=== PATIENT | male | born 1950 | race Caucasian/White ===

== ENCOUNTER 2017-02-03 07:26 | Observation (INO) | payer MEDICARE, BC ==
--- NOTE | ~2017-02-03 | CT71 ---
[facility] A Service of [facility] RADIOLOGY TEXT RESULTS PATIENT: ESTRELLA IMLLER LOCATION: [address] : [birth year] UNIT #: [id number] AGE: [address]: Lashaun Lynne MD SEX: M ORDER DR: [id number] [facility] [address] [facility] [address]. [place], [place] [address] [id number] E MR#: [id number] Acc #: [id number] NAME: ESTRELLA MILLER : 1950 SEX: M STUDY DATE/TIME: 02/03/2017 8:49 UNIT: JULEE ROOM: STUDY DESCRIPTION: CT Head Wo Contrast Attending Physician: Angeline Gonzalez A.P.R.N. Ordering Physician: Angeline Gonzalez A.P.R.N. Primary Care Physician: Clementina Anderson M.D. MEDICAL IMAGING REPORT This report is preliminary unless electronic signature is present EXAM Head CT without contrast, 02/03/2017 HISTORY Altered mental status beginning yesterday post syncopal episode. Dizziness, weakness, sweaty, hypertension today. TECHNIQUE This CT exam was performed with one or more of the following radiation dose reduction techniques: automatic exposure control, adjustment of mA and/or kV according to patient size, and iterative reconstruction. FINDINGS Multiple axial images were obtained from the skull base to vertex without intravenous contrast administration. There is mild generalized atrophy and there is minimal periventricular microvascular white matter ischemic change. There is no midline shift. There is no mass or mass effect, hemorrhage or acute infarct. The visualized paranasal sinuses are clear. IMPRESSION Mild atrophy and periventricular microvascular white matter ischemic change. No acute intracranial abnormality. Dictated by... Chris Martínez M.D. THIS IS AN ELECTRONICALLY VERIFIED REPORT Chris Martínez M.D. at 02/04/2017 6:25 AM Alessandro TD: 02/03/2017 13:30 JOB #: [id number] [facility] A Service of [facility] RADIOLOGY TEXT RESULTS PATIENT: ESTRELLA MILLER [address] : [birth year] UNIT #: [id number] AGE: [address]: Lashaun Lynne MD SEX: M ORDER DR: MEDICAL IMAGING REPORT Page 1 of 1 COPY
--- NOTE | ~2017-02-03 | EE ---
Unit #: [id number] #: [id number] Patient: ESTRELLA MILLER [id number] [address] [address] [id number] Tashia MR#: [id number] NAME: ESTRELLA MILLER. : 1950 SEX: M STUDY DATE/TIME: 02/05/2017 UNIT: [facility] ROOM: [facility] STUDY DESCRIPTION: Attending Physician: Shira Hyatt M.D. Referring Physician: Shira Hyatt M.D. Primary Care Physician: Clementina Anderson M.D. NEURODIAGNOSTICS REPORT EXAM EEG. REASON FOR THE STUDY Syncope versus seizure. EEG DESCRIPTION This is a portable, digitally recorded, multimontage adult EEG with leads placed according to the International 10/20 System. Hyperventilation and photic stimulation were attempted. With the patient fully aroused, there is 8.5 Hz posterior dominant alpha rhythm which is symmetric and attenuate with eyes opening. The patient did become drowsy and later on stage 2 sleep was seen, briefly though. Hyperventilation was attempted but I did not see any significant changes. Photic stimulation was attempted in an intermittent step-tolentino pattern up to the flash frequency of 30 Hz but I did not see any driving, asymmetry, or paroxysmal activity. No clinical events were seen. IMPRESSION This is an essentially normal adult awake and asleep EEG. EEG like this does not rule out epilepsy. Clinical correlation is recommended. Dictated by... Lukas Madsen/ever TD: 02/13/2017 19:22 JOB #: [id number] Unit #: [id number] #: [id number] Patient: ESTRELLA MILLER NEURODIAGNOSTICS REPORT Page 1 of 1 X Mert Hui MD NEURODIAGNOSTICS REPORT
--- NOTE | ~2017-02-03 | CO ---
Unit #: [id number] #: [id number] Patient: DILLAN MILLER [id number] [address] [place], [place] [address] [id number] I MR#: [id number] NAME: DILLAN MILLER ROOM: [facility] Age: 67 Sex: M Admission Date: 02/03/2017 : 1950 Attending Physician: Shira Hyatt M.D. Primary Care Physician: Clementina Anderson M.D. Consultation Date: 02/04/2017 CONSULTATION REPORT REASON FOR CONSULTATION A 67-year-old white male, admitted with syncope x2 with urinary incontinence. Monitoring disclosed episodes of asystole up to 12 seconds. CLINICAL SUMMARY Mr. Dillan Miller is a very nice 67-year-old gentleman, who is normally followed by his regular embossograph operator, Dr. Taurus Hyde. The patient has a history of well documented coronary artery disease. In 10/2011, he had a myocardial infarction and Dr. Hyde performed angioplasty with stent deployments to the right coronary artery and left circumflex. His ejection fraction at that time was about 40% to 45%. He has done very well since that time and on last echo on file with the [facility] was on 04/24/2016 that showed an improved LVEF of 50% to 55% with mild left ventricular hypertrophy and moderate aortic valve regurgitation with [id number]-[id number] mitral valve regurgitation and RVSP equal 38 mmHg. The patient has complained of periodic episodes, where he "feels funny" and describes vague filling of almost feeling dizzy. On Sunday morning, 2 days prior to admission, he was in his recliner watching "nicholson is right" at about 11:00 a.m. He states that he passed out for unknown period of time and awakened to find he had urinary incontinence. He felt sort of weak, but changed clothes and drove himself off and did well until about 2:00 a.m. Sunday morning when he awakened from sleep drenching wet and discovered he had another episode of urinary incontinence and knew something was wrong and he came to the [facility] Emergency Department. He was seen in the ER at approximately 07:26 a.m. Sunday, and at that time, he had unremarkable vital signs. He was not orthostatics with supine blood pressure 121/77 and heart rate of 76, and on standing 131/76 with a heart rate of 76 per minute. The patient's initial 12-lead EKG on 02/04/2017 at 07:29 a.m. showed normal sinus rhythm with evidence of inferior infarct, age undetermined, and no ischemic changes. QRS duration was 98 msec. There was no signs of bundle branch block or AV block. His initial lab work was also unremarkable. We have elected to admit him for monitoring. The patient was observed on monitor on 02/03/2017 at 08:41 p.m. to have 3.56 second pauses and then developed a junctional rhythm at approximately 40 to 45 per minute. He was then go back to a sinus rhythm at about 75 to 80 per minute. At 04:18 a.m., 02/04/2017, he had an 11.8 second pause followed by marked sinus bradycardia at approximately 30 beats per minute. The staff ran into his room and seeing asystole, they started to do chest compressions, but he suddenly woke up and wondered what was going on. I understand he Unit #: [id number] #: [id number] Patient: DILLAN MILLER had another episode of urinary incontinence. The patient was transferred to the intensive care unit and has been maintained on a dopamine drip at 5 mcg/kg/minute and has not had any further episodes of bradycardia with heart rate staying in the 70s per minute and sinus. The patient states that when he was having junctional rhythm that felt very similar to what he had experienced when he was actually driving his car on multiple occasions and pulled over to the side of the road thinking he may have been having a "hypoglycemic episode." He would eat some candy or some fruit and wait 15 minutes or so and then get back on the road driving. He has never had a syncopal episode while behind the wheel of the car. Such episodes have been going on for greater than a month. Of note, ever since his myocardial infarction he has been on low-dose carvedilol 3.125 mg p.o. b.i.d. There is no history of illicit drug use. He has no idea as to whether he has history of sleep apnea, but does note that others say that he sometimes snores loudly. The patient does recall having severe chest pain at the time of his acute myocardial infarction in 2011. He states that in recent years he has not had the slightest bit of chest, neck, arm, jaw, or interscapular discomfort suggestive of angina. He reportedly had a stress Cardiolite study last year that showed no ischemia and preserved LV function. The patient also denies being aware of any rapid palpitations, irregularities of his heart rhythm, or history of diagnosis of atrial fib. He did have a . ALLERGIES No known drug allergies. MEDICATIONS Prior to admission: Carvedilol 3.125 mg p.o. b.i.d., Crestor 40 mg p.o. once per day, lisinopril 2.5 mg every day and Zetia 10 mg p.o. every day. PAST SURGICAL HISTORY Other medical problems: 1. Status post cholecystectomy. 2. Status post hernia repair. 3. Status post stroke versus TIA several years ago. 4. Status post myocardial infarction in 10/2011 with stent deployments to right coronary artery and circumflex. PAST MEDICAL HISTORY Other medical problems: History of hypertension and hyperlipidemia. SOCIAL HISTORY The patient is a lifelong nonsmoker. He is normally very active. He had noted in the last several months increased fatigue with normal activities for unexplained reasons. REVIEW OF SYSTEMS The patient denies any recent TIA or stroke symptoms. He has not had any severe headaches, photophobia, or visual problems. He denies any PND, orthopnea, or lower extremity edema. He has not had any claudication of lower extremities or edema. He denies any vertigo type symptoms. He has not had any anginal equivalents. He denies abdominal pain, melena, hematochezia, or hematemesis. He has not had any muscle aches or Unit #: [id number] #: [id number] Patient: ANGELA,DILLAN L myalgias. There is no history of anemia. There is no history of documented thyroid disorder or diabetes mellitus. A 12-point review of system is otherwise negative. FAMILY HISTORY Negative for premature coronary artery disease. Positive for hypertension. PHYSICAL EXAMINATION GENERAL: The patient is currently alert, comfortable appearing and somewhat anxious 67-year-old white male, who appears much younger than his stated age. VITAL SIGNS: Blood pressure is 118/72, monitor shows normal sinus rhythm at 72 per minute, oxygen saturations are 97% on 2 L/minute nasal cannula, respiratory rate is 16 per minute and unlabored. HEENT: Shows good skin turgor. He is nonicteric. His pupils are equal, round, and reactive to light. Oral mucosa is moist. NECK: Supple without submandibular lymphadenopathy. Thyroid is not palpable. CHEST: Chest wall nontender to palpation. Lungs demonstrate very good air movement bilaterally without any wheezes, rales, or rhonchi. CARDIOVASCULAR: Reveals a normal S1. The pulmonic component of the second heart sound is not increased. There is no S3. There is a 2/6 systolic murmur at the left lower sternal border that radiates just beyond the apex, but does not reach the axilla. There is a 1 to 2/6 systolic murmur going toward the aortic region. There is a faint 1/6 diastolic murmur at the mid left lower sternal border. There are no Quincke's pulses. There are no bounding peripheral pulses. There is no wide pulse pressure present. There is no S3. ABDOMEN: Nondistended with normal bowel sounds. EXTREMITIES: Show no edema or cyanosis. NEURO: He is alert and oriented x3. There are no gross motor or sensory or lateralizing deficits. DIAGNOSTIC STUDIES LABORATORY RESULTS: Other pertinent laboratory from 02/04/2017, serum sodium 136, potassium 4.3, BUN 14, creatinine 0.7, and fasting blood sugar 122. Liver function tests are within normal limits. Serum magnesium 2.0. White blood cell count 8100, hemoglobin 15.6 with a platelet count 220,000. ASSESSMENT 1. Sick sinus syndrome with symptomatic bradycardia/asystole. The patient has been having vague symptoms of dizziness and in fact had been speculating he was having hypoglycemic episodes of causing him to pull his car to the side of the road until he can eat something and recover. Fortunately, he has never had any type of automobile accident. He is now manifested junctional bradyarrhythmias as well as almost 12 second pause. a. The patient has external pacemaker pads in place, but on a low-dose dopamine drip at 5 mcg/kg/min, he has not had any further bradyarrhythmias. 2. Stable atherosclerotic coronary heart disease:. a. Status post myocardial infarction in 10/2011. b. Status post angioplasty and stent deployments to the circumflex and right coronary artery in 10/[address] Taurus Hyde. 3. Apparently reversible cardiomyopathy. Ejection fraction reportedly about 40% in 2011, but on more recent echocardiogram on 04/24/2016 ejection fraction was 50% to 55%. 4. Valvular heart disease. Last echo, 04/28/2016 with moderate aortic valve regurgitation, mtja-aj-vhhjfxta mitral valve regurgitation, and mild tricuspid valve regurgitation with estimated RVSP 38 mmHg (mild pulmonary Unit #: [id number] #: [id number] Patient: DILLAN MILLER hypertension). 5. History of hypertensive cardiovascular disease with mild left ventricular hypertrophy seen on echocardiogram in 04/2016. 6. History of gastroesophageal reflux disease. 7. Hyperlipidemia. RECOMMENDATIONS We will continue current treatment with external pacemaker pads in place while continuing with dopamine drip at 5 mcg/kg/minute. He seems not to have had any further bradyarrhythmia whatsoever since he was placed on the low-dose dopamine drip. I have discussed the case with the piece meat trimmer, Dr. Connor Marinelli and we will plan on transfer the patient to the [facility]rophysiology Lab in the morning for permanent dual-chamber (likely MRI compatible) pacemaker placement. In the meantime, we will continue to monitor as he has show no signs of acute myocardial injury or acute coronary syndrome. His history of loud snoring does raise the question of some underlying sleep apnea, although the first episode of syncope occurred in the morning time while he was watching morning time game show on television and was wide awake and only awakened after passing out to find he was incontinent of urine. I therefore do not think this is bradyarrhythmias related to sleep apnea. He will still likely need a sleep study in the future to see if this may however be an issue. Once the pacemaker is in place, will be able to resume his beta-robson for his known coronary artery disease. The patient has of course been on hold since he demonstrated his marked bradyarrhythmias. Thank you for involving us in the care of this very nice gentleman and we will be happy to follow during his hospital stay with plan for him to follow up with his usual embossograph operator Dr. Taurus Hyde once he is eventually discharged. TD: 02/04/2017 23:41 JOB #: [id number] CC: Taurus Hyde M.D. Dictated by... Pj Platt M.D. CP/imer TD: 02/04/2017 23:00 JOB #: [id number] CC: Taurus Hyde M.D. Unit #: [id number] #: [id number] Patient: DILLAN MILLER CONSULTATION REPORT Page 1 of 1 X Pj Platt MD CONSULTATION REPORT
--- NOTE | ~2017-02-03 | EKG ---
PATIENT: ESTRELLA MILLER UNIT #: [id number] Ventricular Rate: 95 BPM Atrial Rate: 95 BPM P-R Interval: 152 ms QRS Duration: 94 ms Q-T Interval: 348 ms QTC Calculation(Bezet): 437 ms P Blanco: 40 degrees Calculated R Blanco: 84 degrees Calculated T Blanco: 54 degrees Diagnosis Line: Normal sinus rhythm Diagnosis Line: Lateral Q waves noted Diagnosis Line: Borderline ECG Diagnosis Line: When compared with ECG of 04-FEB-2017 07:29, Diagnosis Line: (unconfirmed) Diagnosis Line: Criteria for Inferior infarct are no longer Diagnosis Line: Present Diagnosis Line: ST no longer depressed in Lateral leads Diagnosis Line: Confirmed by DEEDEE BUI MD ([id number]) on Diagnosis Line: 02/04/2017 10:52:26 PM INTERPRETING MD: KENTRELL
--- NOTE | ~2017-02-03 | EKG ---
PATIENT: ESTRELLA MILLER UNIT #: [id number] Ventricular Rate: 77 BPM Atrial Rate: 77 BPM P-R Interval: 138 ms QRS Duration: 98 ms Q-T Interval: 368 ms QTC Calculation(Bezet): 416 ms P [place]: 19 degrees Calculated R [place]: -13 degrees Calculated T [place]: 15 degrees Diagnosis Line: Normal sinus rhythm Diagnosis Line: Inferior infarct (cited on or before 03-FEB-2017) Diagnosis Line: Abnormal ECG Diagnosis Line: When compared with ECG of 03-FEB-2017 08:13, Diagnosis Line: No significant change was found Diagnosis Line: Confirmed by DEEDEE BUI MD ([id number]) on Diagnosis Line: 02/04/2017 10:48:26 PM INTERPRETING : KENTRELL
--- NOTE | ~2017-02-03 | EKG ---
PATIENT: ESTRELLA MILLER UNIT #: [id number] Ventricular Rate: 69 BPM Atrial Rate: 69 BPM P-R Interval: 154 ms QRS Duration: 94 ms Q-T Interval: 396 ms QTC Calculation(Bezet): 424 ms P [place]: 63 degrees Calculated R [place]: -9 degrees Calculated T [place]: -8 degrees Diagnosis Line: Normal sinus rhythm Diagnosis Line: Cannot rule out Inferior infarct , age Diagnosis Line: undetermined Diagnosis Line: Borderline ECG Diagnosis Line: When compared with ECG of 04-FEB-2017 13:34, Diagnosis Line: Criteria for Lateral infarct are no longer Present Diagnosis Line: Possible Inferior infarct is now Present Diagnosis Line: ST no longer depressed in Inferior leads Diagnosis Line: T wave inversion now evident in Inferior leads Diagnosis Line: Confirmed by FADY JAMES MD ([id number]) on 02/06/2017 Diagnosis Line: 5:40:32 AM INTERPRETING MD: JACOB AIKEN
--- NOTE | ~2017-02-03 | HP ---
Unit #: [id number] #: [id number] Patient: ESTRELLA MILLER [id number] [facility]. [place], [place] [address] [id number] MR#: [id number] NAME: ESTRELLA MILLER ROOM: Age: 67 Sex: M Admission Date: 02/03/2017 : 1950 Attending Physician: Angeline Gonzalez A.P.R.N. Primary Care Physician: Clementina Anderson M.D. HISTORY AND PHYSICAL CHIEF COMPLAINT Sweating, dizzy, syncope, urinated on self yesterday. HISTORY OF PRESENT ILLNESS The patient is a 67-year-old male with a past medical history of coronary artery disease, valvular heart disease, hypertension, hyperlipidemia, cerebrovascular accident who presented to the emergency department for evaluation of the above. The patient states that he was in his usual state of health until the last 24 hours. He states that he had two, what he thought were "fainting spells." He states that he had urinary incontinence in association with both episodes. He denied any type of preceding symptoms. No chest pain. No difficulty breathing. No cough or cold symptoms. He did not bite his tongue. Both episodes were unwitnessed. He states that during the past 9 months has had a couple of episodes of feeling lightheaded as if he would pass out while driving. He states that he has also felt shaky but not actually passes out. He states that those symptoms were relieved by "drinking a soft drink." He has never been told he had seizures. He has never had an EEG. In the emergency department a CT of the head was done and showed nothing acute. Chest x-ray showed nothing acute. Laboratories essentially unremarkable. He is being admitted to [facility] for evaluation and further treatment. PAST MEDICAL HISTORY 1. Admission to [facility] 04/23/2016 for a chest pain. He underwent a stress test that showed no obvious stress induced ischemia, ejection fraction was calculated to be 49%. Suspicion for possible old inferior wall myocardial infarction was noted. Inferior wall hypokinesis cannot be ruled out. There is no discharge summary from that visit. 2. Coronary artery disease, status post stent placement followed by Dr. Hyde. 3. Aortic regurgitation per cardiology consultation note. There is an echocardiogram from 11/02/2011 that showed ejection fraction of 40% to 45% with mild to moderate mitral regurgitation, mild tricuspid regurgitation, moderate to severe aortic regurgitation, grade 2 focal aortic atheroma. 4. Hypertension. 5. Hyperlipidemia. Unit #: [id number] #: [id number] Patient: ESTRELLA MILLER 6. Cerebrovascular accident with "slight balance issues." As a residual. PAST SURGICAL HISTORY 1. Hernia repair. 2. Cardiac catheterization. SOCIAL HISTORY The patient denies tobacco use. He drinks most days. He states anywhere from three to ten beers daily. He denies every going through withdrawal. His last drink was yesterday and consists of three beers. He is retired from [employer]. FAMILY HISTORY Notable for there being no history of coronary artery disease or seizures. REVIEW OF SYSTEMS A complete review of systems is negative except as indicated in the HPI. The patient denies any history of head trauma. ALLERGIES No known allergies. HOME MEDICATIONS Coreg 3.125 mg twice daily; Crestor 40 mg daily; Zestril 2.5 mg daily; Zetia 10 mg at bedtime; aspirin 81 mg daily. PHYSICAL EXAMINATION VITAL SIGNS: Temperature is 97.6, pulse 86, respirations 18, blood pressure 151/74, oxygen saturation is 98% on room air. GENERAL: The patient is a male who is awake and alert in no acute distress. HEENT: Head is atraumatic. Mucous membranes are moist. NECK: Supple. Tracheal is midline. CARDIOVASCULAR: Regular rate and rhythm. LUNGS: Clear to auscultation bilaterally with no increased work of breathing. ABDOMEN: Soft, nontender with bowel sounds present in all four quadrants. EXTREMITIES: Nontender with no pedal edema. NEUROLOGIC: The patient is awake and alert. He follows commands. PSYCH: Mood and affect are normal. The patient is cooperative. SKIN: Skin of examined areas is warm and dry. DIAGNOSTIC STUDIES CARDIOLOGY STUDIES: EKG shows normal sinus rhythm with a rate of 75 BPM. IMAGING STUDIES: Chest x-ray shows nothing acute. CT of the head shows nothing acute. Troponin is less than 0.05. Complete blood count notable for hemoglobin and hematocrit of 16.4 and 48.7 respectively. LABORATORY STUDIES: Comprehensive metabolic panel notable for a glucose of 135, magnesium 2.1. ASSESSMENT The patient is a 67-year-old male with: 1. Syncope versus seizure. The patient had urinary incontinence in association with both episodes. He has never been told he has a Unit #: [id number] #: [id number] Patient: ESTRELLA MILLER seizure disorder. He does have a history of valvular heart disease. 2. History of coronary artery disease, status post cardiac stent placement. 3. History of valvular heart disease. 4. Hypertension. 5. Hyperlipidemia. 6. Cerebrovascular accident with residual "slight balance issues." 7. Alcohol abuse. The patient drinks most days, anywhere from 3 to 10 beers. His last drink was yesterday and consisted of 3 beers. PLAN 1. Admit for observation to intermediate level. 2. Healthy heart diet. 3. Seizure precautions. 4. Neuro checks. 5. EEG. 6. MRI of the brain with and without contrast, per seizure protocol. 7. 2D echo if not done within the past year. 8. Serial cardiac enzymes. 9. Orthostatics q. shift. 10. Thiamine, multivitamin, and folic acid. 11. CIWA protocol. 12. Repeat labs in the morning. 13. SCDs for DVT prophylaxis. 14. Additional workup and consultants based on above. Dictated by Lukas Maher/albertina TD: 02/03/2017 13:06 JOB #: [id number] HISTORY AND PHYSICAL Page 1 of 1 X Lashaun Lynne MD HISTORY AND PHYSICAL
--- NOTE | ~2017-02-03 | DS ---
Unit #: [id number] #: [id number] Patient: ESTRELLA MILLER [id number] [address] [place], [place] [address] [id number] I MR#: [id number] NAME: ESTRELLA MILLER ROOM: [facility] Age: 67 Sex: M Admission Date: 02/03/2017 : 1950 Discharge Date: 02/05/2017 Attending Physician: Shira Hyatt M.D. Primary Care Physician: Clementina Anderson M.D. DISCHARGE SUMMARY ADMISSION DIAGNOSIS Syncope versus seizure. DISCHARGE DIAGNOSES 1. Sick sinus syndrome, severe bradycardia. The patient is requiring permanent pacemaker. 2. Coronary artery disease, status post coronary artery bypass grafting. 3. History of valvular heart disease. 4. Hypertension. 5. Hyperlipidemia. 6. History of CVA. 7. Stable angina. CONSULTANTS Dr. Baez and in cardiac consultation. HOSPITAL COURSE The patient is a 67-year-old who was admitted to [facility] with syncope. Details are as per admission history and physical. The patient was diagnosed with sick sinus syndrome and was transferred to the ICU. The patient was seen by cardiology in consultation, who are planning to transfer him to [facility] for permanent pacemaker. Today the patient is comfortable. TRANSFER MEDICATIONS As per medication reconciliation form. DISPOSITION The patient will be transferred to [facility]. Dictated by... Lukas Bhandari TD: 02/05/2017 14:49 JOB #: [id number] CC: Lukas Maldonado M.D. Unit #: [id number] #: [id number] Patient: ESTRELLA MLILER Bruce Baez M.D. DISCHARGE SUMMARY Page 1 of 1 X Shira Hyatt MD X DISCHARGE SUMMARY
--- NOTE | ~2017-02-03 | EKG ---
PATIENT: ESTRELLA MILLER UNIT #: [id number] Ventricular Rate: 75 BPM Atrial Rate: 75 BPM P-R Interval: 152 ms QRS Duration: 94 ms Q-T Interval: 390 ms QTC Calculation(Bezet): 435 ms P [place]: 57 degrees Calculated R [place]: -10 degrees Calculated T [place]: 29 degrees Diagnosis Line: Normal sinus rhythm Diagnosis Line: Consider prior Inferior infarct , age Diagnosis Line: undetermined Diagnosis Line: Borderline ECG Diagnosis Line: When compared with ECG of 15-MAY-2016 08:12, Diagnosis Line: Nonspecific T wave abnormality no longer evident Diagnosis Line: in Anterolateral leads Diagnosis Line: Confirmed by DEEDEE BUI MD ([id number]) on Diagnosis Line: 02/03/2017 3:07:46 PM INTERPRETING MD: KENTRELL
--- NOTE | ~2017-02-03 | MR17 ---
[facility] A Service of [facility] RADIOLOGY TEXT RESULTS PATIENT: ESTRELLA MILLER LOCATION: [facility] 323-01 : [birth year] UNIT #: [id number] AGE: [address]: Lashaun Lynne MD SEX: M ORDER DR: [id number] [facility] [address] [facility] [place], [place] [address] [id number] I MR#: [id number] Acc #: [id number] NAME: ESRTELLA MILLER. : 1950 SEX: M STUDY DATE/TIME: 02/03/2017 10:46 UNIT: [address] ROOM: [facility] STUDY DESCRIPTION: MR Brain WWo Contrast Attending Physician: Lashaun Lynne M.D. Ordering Physician: Lashaun Lynne M.D. Primary Care Physician: Clementina Anderson M.D. MRI CENTER REPORT This report is preliminary unless electronic signature is present. EXAM MRI of the brain with and without contrast. HISTORY Two episodes of passing out morning of 02/02/2017. Patient urinated on self. No history trauma. COMPARISON Head CT; 02/03/2017 and 10/31/2011. TECHNIQUE Multiplanar, multiecho imaging was performed of the brain to include diffusion-weighted imaging. Axial and coronal T1-weighted images were also performed following IV gadolinium. FINDINGS Mild cerebral atrophy in keeping with age. Diffuse periventricular white matter changes as well as extensive patchy T2 hyperintensities within the basal ganglia deep nuclei. Findings most likely reflect chronic microvascular disease. No restricted diffusion identified to suggest acute infarct. No mass or mass effect or midline shift. No hemorrhage or abnormal extraaxial fluid collections. Bony calvaria, skull base, mastoids unremarkable. There is right maxillary sinus mucosal disease. Patient demonstrates cavum septum pellucidum and vergae. Normal anatomic variant. Normal intracranial enhancement postcontrast. IMPRESSION 1. No acute intracranial abnormality identified. 2. Mild atrophy with diffuse periventricular changes compatible with chronic microvascular disease, as well as chronic-appearing microvascular changes within the deep nuclei. [facility] A Service of [facility] RADIOLOGY TEXT RESULTS PATIENT: ESTRELLA MILLER LOCATION: [facility] 323-01 : [birth year] UNIT #: [id number] AGE: [address]: Lashaun Lynne MD SEX: M ORDER DR: Dictated by... Jason Zavala M.D. THIS IS AN ELECTRONICALLY VERIFIED REPORT Jason Zavala M.D. at 02/03/2017 9:11 PM Sunil TD: 02/03/2017 16:28 JOB #: [id number] MRI CENTER REPORT Page 1 of 1 COPY
--- NOTE | ~2017-02-03 | CR72 ---
[facility] A Service of [facility] RADIOLOGY TEXT RESULTS PATIENT: ESTRELLA MILLER LOCATION: [address]11[address]03 : [birth year] UNIT #: [id number] AGE: [address]: Lashaun Lynne MD SEX: M ORDER DR: [id number] [facility] [address]. [place], [place] [address] [id number] E MR#: [id number] Acc #: [id number] NAME: ESTRELLA MILLER : 1950 SEX: M STUDY DATE/TIME: 02/03/2017 8:39 UNIT: JULEE ROOM: STUDY DESCRIPTION: CR Chest Single View Portable Attending Physician: Angeline Gonzalez A.P.R.N. Ordering Physician: Ed Chuck Lao M.D. Primary Care Physician: Clementina Anderson M.D. MEDICAL IMAGING REPORT This report is preliminary unless electronic signature is present EXAM Portable chest 02/03/2017 HISTORY Syncopal episode yesterday with dizziness, sweating and nausea. Benign essential hypertension, coronary artery disease and cardiac stents. FINDINGS The cardiac and mediastinal structures are stable compared with 05/15/2016. There is elevation of the right hemidiaphragm with atelectasis at the right lung base. Lungs are otherwise clear. There are no pleural effusions. IMPRESSION No active pulmonary disease. Dictated by... Chris Martínez M.D. THIS IS AN ELECTRONICALLY VERIFIED REPORT Chris Martínez M.D. at 02/04/2017 6:25 AM NIKKO/cee TD: 02/03/2017 13:15 JOB #: [id number] MEDICAL IMAGING REPORT Page 1 of 1 COPY
[~2017-02-03 07:26] MED LIST: BAYER ASPIRIN325 M1 PO; CARVEDILOL3.125 MG PO; CRESTOR PO; EFFIENT10 MG PO; NITROGLYGERIN0.4 MG SL; PLAVIX PO; ZESTRIL2.5 MG PO
[2017-02-03 08:09] LABS: POC - CKMB 1.5 ng/mL (0.0-7.9); POC - TROPONIN <0.05 ng/mL (<=0.05)
[2017-02-03 08:28] LABS: BASOPHIL% 0.3 % (0-2.5); EOSINOPHIL# 0.1 X10e3 (0-0.7); EOSINOPHIL% 1.2 % (0.0-7.0); HEMATOCRIT 48.7 % (38.0-50.0); HEMOGLOBIN 16.4 gm/dL (13.0-16.0); LYMPHOCYTE# 0.9 X10e3 (1.0-3.5); MEAN CELL VOLUME 94.7 FL (83-96); MEAN CORPUSCULAR HEMOGLOBIN 31.8 PG (28-34); MEAN CORPUSCULAR HGB CONC 33.6 g/dL (30-36); MEAN PLATELET VOLUME 6.8 FL (6.5-11.5); MONOCYTE# 0.5 X10e3 (0-1.0); MONOCYTE% 5.3 % (3.0-12.0); NEUTROPHIL# 7.6 X10e3 (1.5-7.1); NEUTROPHIL% 83.2 % (40-75); PLATELET COUNT 214 X10e3 (140-420); RED BLOOD COUNT 5.15 X10e (3.90-5.60); WHITE BLOOD COUNT 9.2 X10e3 (4.0-10.5)
[2017-02-03 08:32] LABS: DIFF IND NO
[2017-02-03 09:04] LABS: ALBUMIN SERUM 4.1 g/dL (3.5-5.0); BUN/CREATININE RATIO 17.5; CALCIUM SERUM 8.9 mg/dL (8.4-10.2); CREATININE SERUM 0.8 mg/dL (0.6-1.4); GLOM FILT RATE Estimated 91.2 mL/min (>60); PROTEIN TOTAL SERUM 7.4 g/dL (6.0-8.3)
[2017-02-03 09:33] LABS: POC - CKMB 1.6 ng/mL (0.0-7.9); POC - TROPONIN <0.05 ng/mL (<=0.05)
[2017-02-03] MEDS ORDERED: COREG3.125 M1 PO (09:52)
[2017-02-03] MEDS ORDERED: CRESTOR40 MG PO (09:52)
[2017-02-03] MEDS ORDERED: ZETIA PO (09:53)
[2017-02-03] MEDS ORDERED: ASPIRIN81 M2 PO (09:53)
[2017-02-03] MEDS ORDERED: ZESTRIL2.5 M1 PO (09:53)
[2017-02-03 14:35] LABS: URINE SOURCE CLEAN CATCH
[2017-02-03 14:39] LABS: URINE APPEARANCE CLEAR; URINE BILIRUBIN NEG (NEG); URINE BLOOD NEG (NEG); URINE COLOR YELLOW; URINE GLUCOSE NEG (NEG); URINE KETONE NEG (NEG); URINE LEUKOCYTE ESTERASE NEG (NEG); URINE NITRATE NEG (NEG); URINE PH 5.5 (5-8); URINE PROTEIN NEG (NEG); URINE SPECIFIC GRAVITY 1.022 (1.003-1.035); URINE UROBILINOGEN 0.2 MG/DL (NEG)
[2017-02-03 14:48] LABS: CULTURE INDICATED? NO
[2017-02-03 16:08] LABS: %MB 3.9 % (0.0-4.0); MB 3.4 ng/ml
[2017-02-03 22:27] LABS: %MB 3.9 % (0.0-4.0); MB 3.5 ng/ml
[2017-02-04 05:20] LABS: BASOPHIL% 0.3 % (0-2.5); EOSINOPHIL# 0.1 X10e3 (0-0.7); EOSINOPHIL% 1.4 % (0.0-7.0); HEMATOCRIT 46.5 % (38.0-50.0); HEMOGLOBIN 15.6 gm/dL (13.0-16.0); LYMPHOCYTE# 1.6 X10e3 (1.0-3.5); LYMPHOCYTE% 19.6 % (17.0-45.0); MEAN CELL VOLUME 95.6 FL (83-96); MEAN CORPUSCULAR HGB CONC 33.5 g/dL (30-36); MEAN PLATELET VOLUME 6.7 FL (6.5-11.5); MONOCYTE# 0.7 X10e3 (0-1.0); MONOCYTE% 8.5 % (3.0-12.0); NEUTROPHIL# 5.7 X10e3 (1.5-7.1); NEUTROPHIL% 70.2 % (40-75); PLATELET COUNT 220 X10e3 (140-420); RED BLOOD COUNT 4.87 X10e (3.90-5.60); RED CELL DISTRIBUTION WIDTH 13.1 % (11.0-15.5); WHITE BLOOD COUNT 8.1 X10e3 (4.0-10.5)
[2017-02-04 05:51] LABS: DIFF IND NO
[2017-02-04 06:10] LABS: ALBUMIN SERUM 3.6 g/dL (3.5-5.0); BILIRUBIN,TOTAL 0.4 mg/dL (0.2-2.0); CALCIUM SERUM 9.1 mg/dL (8.4-10.2); CREATININE SERUM 0.7 mg/dL (0.6-1.4); GLOM FILT RATE Estimated 96.3 mL/min (>60); POTASSIUM 4.3 mmol/L (3.5-5.1); PROTEIN TOTAL SERUM 6.8 g/dL (6.0-8.3)
[2017-02-05 06:04] LABS: BASOPHIL% 0.4 % (0-2.5); EOSINOPHIL# 0.1 X10e3 (0-0.7); EOSINOPHIL% 1.5 % (0.0-7.0); HEMATOCRIT 50.4 % (38.0-50.0); HEMOGLOBIN 17.1 gm/dL (13.0-16.0); LYMPHOCYTE# 1.2 X10e3 (1.0-3.5); LYMPHOCYTE% 18.2 % (17.0-45.0); MEAN CELL VOLUME 93.9 FL (83-96); MEAN CORPUSCULAR HEMOGLOBIN 31.8 PG (28-34); MEAN CORPUSCULAR HGB CONC 33.9 g/dL (30-36); MEAN PLATELET VOLUME 6.4 FL (6.5-11.5); MONOCYTE# 0.7 X10e3 (0-1.0); MONOCYTE% 9.7 % (3.0-12.0); NEUTROPHIL# 4.8 X10e3 (1.5-7.1); NEUTROPHIL% 70.2 % (40-75); PLATELET COUNT 232 X10e3 (140-420); RED BLOOD COUNT 5.37 X10e (3.90-5.60); RED CELL DISTRIBUTION WIDTH 13.1 % (11.0-15.5); WHITE BLOOD COUNT 6.8 X10e3 (4.0-10.5)
[2017-02-05 06:28] LABS: DIFF IND NO
[2017-02-05 06:42] LABS: BUN/CREATININE RATIO 21.25; CALCIUM SERUM 9.2 mg/dL (8.4-10.2); CREATININE SERUM 0.8 mg/dL (0.6-1.4); GLOM FILT RATE Estimated 91.2 mL/min (>60); MAGNESIUM 2.1 mg/dL (1.6-3.0); POTASSIUM 3.9 mmol/L (3.5-5.1)
[2017-02-05 07:03] LABS: %MB 2.9 % (0.0-4.0); MB 1.9 ng/ml
== END 2017-02-05 16:15 | disposition short-term general hospital (02) ==
LOC: CED 07:26 → CICCU3 09:45 → CEDOF 09:45 → CED 09:59 → C3A PCU 09:59 → CEDOF 09:59 → C3A PCU 16:27 → CEDOF 16:27 → C3A PCU 16:44 → CEDOF 02-04 04:38 → C3A PCU 02-04 04:38 → CICCU3 02-04 04:38 → CED 02-04 04:38 → C3A PCU 02-04 04:38 → CICCU3 02-04 05:48 → C3A PCU 02-04 05:48 → CICCU3 02-04 05:48
PROVIDERS: Family Medicine; Internal Medicine; Internal Medicine Cardiovascular Disease; Nurse Practitioner
DX: R55 Syncope and collapse (principal); R42 Dizziness and giddiness; R53.1 Weakness; Z86.73 Personal history of transient ischemic attack (TIA), and cerebral infarction without residual deficits; I25.10 Atherosclerotic heart disease of native coronary artery without angina pectoris; I10 Essential (primary) hypertension; Z79.899 Other long term (current) drug therapy
CPT/HCPCS: 36415; 70450; 70553; 71010; 80048; 80053; 81003; 82550; 82553; 82947; 83735; 84443; 84484; 85025; 85610; 93005; 93306; 94760; 95816; 96374; 99285; A9577; G0378; J1265; J2405